=== PATIENT | female | born 2000 | race Caucasian/White ===

== ENCOUNTER → 2024-04-28 08:18 | Outpatient (REF) | payer OTHER, SELFPAY | LOC: HWRAD 08:18 | PROVIDERS: ATTENDING PHYSICIAN Physician Assistant; FAMILY PHYSICIAN Physician Assistant Medical | DX: R13.10 Dysphagia, unspecified (principal) | CPT/HCPCS: 76536 ==

== ENCOUNTER → 2024-07-22 13:02 | Outpatient (REF) | payer OTHER, SELFPAY | LOC: HWRAD 13:02 | PROVIDERS: ATTENDING PHYSICIAN Physician Assistant Medical | DX: R10.11 Right upper quadrant pain (principal); M79.672 Pain in left foot | CPT/HCPCS: 73630; 76700 ==

== ENCOUNTER 2024-11-10 17:23 | Emergency (ER) | payer OTHER, SELFPAY ==
[2024-11-10 17:26] VITALS: BP 168/89
[2024-11-10 18:34] VITALS: BP 139/93; BMI 52.0
[2024-11-10 19:05] VITALS: BP 144/86
--- NOTE | 2024-11-10 19:16 | ED.GENMED ---
History of Present Illness
General
Chief Complaint: Musculo-Skeletal Complaint
Source: patient
Exam Limitations: none
Time Seen by Provider: 11/10/24 17:44
Nursing documentation reviewed up to this point in time: agreed with
History of Present Illness
History of Present Illness:
24-year-old female presents to the ER for evaluation. Patient noticed blood bruise to the right lateral lower leg 3 weeks ago. She went to urgent care was sent here to rule out a blood clot.
She denies any history of blood clots. She is not on oral contraceptives. She does not smoke.
She does report sometimes she feels intermittently short of breath but she also reports she has not been exercising like normal and that may be the cause.
In addition she mentions that several days ago she was at a work conference and was standing and fell like she was going to pass out. That episode resolved after drinking water.
Phy Exam
General Physical Exam
General Presentation: no apparent distress
General age: appears stated age
General Skin: warm and dry
General Habitus: obese
General Mental: alert
General Hydration: appears well hydrated
Cardiovascular Exam
Cardiovascular Exam: regular rate/rhythm, no murmur and normal peripheral pulses
Pulmonary Exam
Pulmonary Exam: lungs clear and no respiratory distress
Neurological Exam
Neurological Exam: alert and oriented x3
Musculoskeletal Exam
Musculoskeletal Exam: other (small area of ecchymosis to right lateral calf no obvious swelling to calf no calf tenderness strong distal pulses normal distal sensation normal cap refill)
Skin Exam
Skin Exam: normal color and warm/dry
Psychiatric Exam
Psychiatric Exam: normal mood/affect
Course
Orders/Labs/Results
Orders:
Orders
11/10/24 18:29
Venous Doppler Lwr Ext Rt [US Periph Venous LOWER Ext RT] Urgent
Comment:
Reason For Exam: pain
11/10/24 19:19
Electrocardiogram (*1) Stat
Reason for Study: Other
Other Reason for Exam: chest pain
EKG- Treatment ONCE
Vital Signs
Initial and Last Documented VS:
Initial Vital Signs
Temp Pulse Resp BP Pulse Ox
98.7 F 100 18 168/89 98
11/10/24 17:26 11/10/24 17:26 11/10/24 17:26 11/10/24 17:26 11/10/24 17:26
Last Documented Vital Signs
Temp Pulse Resp BP Pulse Ox
98.2 F 92 16 144/86 98
11/10/24 18:34 11/10/24 18:34 11/10/24 18:34 11/10/24 19:05 11/10/24 19:45
MDM/Problems Addressed
MDM/Problems Addressed:
Patient is a 24 yr old female who was sent by urgent care to rule out a blood clot in her right lower leg. She noticed a bruise 3 weeks ago she denies any actual swelling ;no prior history of blood clot she does not smoke.
Will check ultrasound however no obvious swelling strong distal pulses not likely DVT.
In addition she mentioned she had a near syncopal episode several days while standing at a work conference however that resolved after water. I ordered an EKG and planned for blood work but patient does not want blood work. She reports she is
not concerned about but did feel that she needed to mention it.
She reports she has an appoint with her family doctor and blood work coming up to check her thyroid level as well as iron and other basic labs would rather wait and see her family doctor.
Ultrasound negative for DVT. There is a 2.4 x 3.7 x 1.0 cm echogenic focus within the subcutaneous tissue of the proximal lateral calf which corresponds to patient's palpable abnormality may represent hematoma or lipoma less likely an infectious
process. Patient denies any fever chills will DC with outpatient follow-up likely hematoma.
*Pulse Oximetry
Patient hypoxic: no
*EKG
Comparison EKG: no comparison EKG present
Heart Rate: 91
Rate: normal
Rhythm: sinus
QRS Pattern: other (Incomplete or bundle branch block)
*Critical Care Note
Total Time (30-74mins, 75-104mins- exclusive of procedures): Not Applicable
ED Attending Note
-
Portions of this chart may have been created with voice recognition software.� Occasional wrong word or��sound alike� substitutions may have occurred due to the inherent limitations of voice recognition software.
Discharge Plan
Departure
Patient Disposition: Home (Routine Discharge)
Date of Disposition: 11/10/24
Time of Disposition: 19:54
Patient with high blood pressure during this ER visit?: Yes
Condition: Fair
Covid-19: Not Applicable
Discharge Problem:
Right calf pain
Referrals:
Usha Max PA-C [Family Provider] -
Activity Restrictions/Additional Instructions:
You were seen here today for bruising to the right calf and discomfort. There was no blood clot noted; this is likely from a bruise. Please follow-up with your family doctor for further reevaluation, return if any worsening of symptoms.
Interventions
Interventions:
*Risk Screen - Suicide Last Done: 11/10/24 17:26
*General Assessment Last Done: 11/10/24 19:06
*Neglect/Abuse Screening Last Done: 11/10/24 17:26
*ED- Fall Risk Assessment Last Done: 11/10/24 19:06
*ED COVID-19 Vaccine History Last Done: 11/10/24 17:26
*Nursing Disposition Last Done: 11/10/24 20:08
ED- Cardiac Assessment Last Done: 11/10/24 19:06
ED-Musculoskeletal Assessment Last Done: 11/10/24 18:36
ED- Pulmonary Assessment Last Done: 11/10/24 19:06
ED-Peripheral Vascular Assessment Last Done: 11/10/24 19:06
ED-Skin Assessment Last Done: 11/10/24 19:06
Discharge Date and Time
Discharge Date/Time: 11/10/24 20:12
Print Language: GUINEAN
== END 2024-11-10 20:12 | disposition home or self-care (01) ==
LOC: EMR 17:23
PROVIDERS: EMERGENCY PHYSICIAN Emergency Medicine; FAMILY PHYSICIAN Physician Assistant Medical
DX: M79.661 Pain in right lower leg (principal); R03.0 Elevated blood-pressure reading, without diagnosis of hypertension
CPT/HCPCS: 99285; 93005; 93971